=== PATIENT | male | born 1960 ===

== ENCOUNTER 2016-10-28 17:35 | Emergency (ER) | payer BC ==
[2016-10-28 18:55] VITALS: BP 118/81
[2016-10-28] MEDS ORDERED: Phenazopyridine TAB* 100 MG PO ONE (19:50)
[2016-10-28] MEDS ORDERED: Cephalexin CAP* 500 MG PO ONE (19:51)
--- NOTE | 2016-10-28 19:59 | UC ---
Complaint Male HPI - HPI Summary HPI Summary: FIVE DAYS OF PAINFUL URINATION, LOW BACK PAIN. CHILLS. HISTORY OF PREVIOUS URINARY TRACT INFECTIONS. PATIENT OF DR BARGER'S - History of Current Complaint Chief Complaint: UCGU Stated Complaint: back pain, and painful urination Time Seen by Provider: 10/28/16 19:41 Hx Obtained From: Patient, Family/Sports Journalist Onset/Duration: Gradual Onset, Lasting Days, Still Present Timing: Lasting Days Severity Initially: Mild Severity Currently: Moderate Location: Suprapubic Character: Burning Aggravating Factor(s): Voiding Associated Signs And Symptoms: Positive: Back Pain, Fever, Dysuria. Negative: Blood in Stool, Rectal Pain, Nausea, Vomiting(# Of Episodes =), Penile Swelling , Penile Discharge - Risk Factors Testicular Torsion: Negative - Allergies/Home Medications Allergies/Adverse Reactions: Allergies Allergy/AdvReac Type Severity Reaction Status Date / Time Prednisone Allergy Altered Verified 10/28/16 18:55 Mental Status Home Medications: Home Medications Folic Acid TAB* [Folvite TAB*] 10/28/16 [History] Methotrexate TAB* 10/28/16 [History] Sitagliptin Phosphate [Januvia] 10/28/16 [History Confirmed 10/28/16] metFORMIN* [Glucophage 500 MG TAB *] 10/28/16 [History] PMH/Surg Hx/FS Hx/Imm Hx Previously Healthy: Yes - Surgical History Surgical History: None - Family History Known Family History: Negative: Renal Disease - Social History Occupation: Employed Full-time Lives: With Family Alcohol Use: None Substance Use Type: None Smoking Status (MU): Never Smoked Tobacco Review of Systems Constitutional: Fever, Chills Skin: Negative Eyes: Negative ENT: Negative Respiratory: Negative Cardiovascular: Negative Gastrointestinal: Negative Genitourinary: Dysuria, Frequency, Urgency Motor: Negative Neurovascular: Negative Musculoskeletal: Negative Neurological: Negative Psychological: Negative All Other Systems Reviewed And Are Negative: Yes Physical Exam Triage Information Reviewed: Yes Appearance: Well-Appearing, No Pain Distress, Well-Nourished Vital Signs: Initial Vital Signs Temp 100.4 F 10/28/16 18:50 Pulse 119 10/28/16 18:50 Resp 18 10/28/16 18:50 BP 118/81 10/28/16 18:50 Pulse Ox 97 10/28/16 18:50 Vital Signs Reviewed: Yes Eye Exam: Normal ENT Exam: Normal ENT: Positive: Normal ENT inspection, Hearing grossly normal, TMs normal Dental Exam: Normal Neck exam: Normal Neck: Positive: Supple, Nontender Respiratory Exam: Normal Respiratory: Positive: Chest non-tender, Lungs clear, Normal breath sounds, No respiratory distress, No accessory muscle use Cardiovascular Exam: Normal Cardiovascular: Positive: RRR, No Murmur, Pulses Normal, Brisk Capillary Refill Abdominal Exam: Normal Abdomen Description: Positive: Nontender, No Organomegaly. Negative: CVA Tenderness (R), CVA Tenderness (L) Musculoskeletal Exam: Normal Neurological Exam: Normal Psychological Exam: Normal Skin Exam: Normal Complaint Male Course/Dx - Differential Dx/Diagnosis Differential Diagnosis/HQI/PQRI: Pyelonephritis, Urinary Tract Infection Provider Diagnoses: URINARY TRACT INFECTION Discharge - Discharge Plan Condition: Stable Disposition: HOME Prescriptions: Cephalexin CAP* [Keflex CAP*] 500 mg PO QID #40 cap Phenazopyridine TAB* [Pyridium 100 mg TAB*] 100 mg PO TID #15 tab Patient Education Materials: Urinary Tract Infection in Men (ED) Referrals: Get Siddiqui MD [Primary Care Provider] - Jozef Barger MD [Medical Doctor] -
== END 2016-10-28 19:45 | disposition home or self-care (01) ==
LOC: UCEAST 17:35
DX: N39.0 Urinary tract infection, site not specified (principal)
CPT/HCPCS: 81003; 87077; 87086; 87186; 99212; A9270-GY; G0463